=== PATIENT | female | born 1990 | race Caucasian/White ===

== ENCOUNTER → 2022-05-12 | Outpatient (CLI) | payer OTHER ==
--- NOTE | 2022-05-12 16:37 | US ---
EXAMINATION TYPE: Transabdominal DATE OF EXAM: 05/12/2022 4:03 PM COMPARISON: NONE CLINICAL HISTORY: Z34.90 ENCNTR FOR SUPRVSN OF NORM . Positive beta-hCG test. EXAM PERFORMED: Transabdominal (TA) EXAM MEASUREMENTS: GESTATIONAL AGE / DATING Physician Established: (7 weeks/5 days) EDC: 12/24/2022 Dates by LMP: LMP unknown Dates by First Scan: No previous this is first scan Dates by Current Scan for: ( 8 weeks/4 days) EDC: 12/18/2022 MATERNAL ANATOMY Uterus: 10.8 x 5.7 x 6.4cm Right Ovary: 3.8 x 2.8 x 2.4cm Left Ovary: 3.4 x 1.7 x 2.4cm Post CDS / Adnexa: wnl Presence of free fluid: no Presence of corpus luteal cyst: right ovary - 2.3cm Presence of subchorionic bleed: no GESTATION / SURVEY CRL: 1.9cm (8 weeks/4 days) Yolk Sac (normal less than 6mm): 4.3mm Heart Rate: 163 bpm Rhythm: Normal IUP: Viable IUP Single live intrauterine gestation is confirmed as gestational sac, yolk sac, and pole are pres ent. No free fluid in pelvic cul-de-sac. Both ovaries are seen. Right ovary has a 2.3 cm peripheral hypoechoic lesion felt to reflect corpus l uteal cyst. IMPRESSION: Single live intrauterine gestation is confirmed, mean crown-rump length 1.9 cm correspond ing to 8 weeks 4 day old fetus.
== END | disposition home or self-care (01) ==
LOC: RADUSWWP 15:34
PROVIDERS: ATTEND Obstetrics & Gynecology
DX: Z36.89 Encounter for other specified antenatal screening (principal); Z3A.08 8 weeks gestation of pregnancy
CPT/HCPCS: 76801

== ENCOUNTER → 2022-07-19 | Outpatient (CLI) | payer OTHER ==
--- NOTE | 2022-07-20 09:35 | US ---
EXAMINATION TYPE: US OB >= 14 wk fetus DATE OF EXAM: 07/19/2022 COMPARISON: None CLINICAL HISTORY: 31-year-old female Z3490 eNCOUNTER FOR SUPERVISION OF NORMAL Per order, growth ult rasound TECHNIQUE: Multiple transabdominal sonographic images of the pelvis are obtained. FINDINGS: GESTATIONAL AGE / DATING Physician Established: (18 weeks/1 days) EDC: 12/19/2022 Dates by First Scan: (18 weeks/2 days) EDC: 12/18/2022 Dates by Current Scan: (18 weeks/2 days) EDC: 12/18/2022 SURVEY IUP: Single PLACENTA: Posterior PREVIA: No Previa, inferior placental tip 2.4 cm from the internal cervical os. ABIMBOLA: 14.4 cm Normal CERVICAL LENGTH (transabdominal: norm > 3.0cm): 3.8 cm BIOMETRY PRESENTATION: Variable LIE: Transverse with head maternal Right BPD: 4.2 cm 18 weeks / 6 days HC: 14.7 cm 17 weeks / 6 days AC: 12.3 cm 18 weeks / 0 days FL: 2.6 cm 18 weeks / 0 days ESTIMATED WEIGHT IN GRAMS: 217 grams ESTIMATED WEIGHT IN LBS/OZ: 0 lbs. 8 oz. WEIGHT PERCENTAGE BASED ON ESTABLISHED DATES: 33% HC/AC: 1.2 Normal FL/AC: 21% HEART RATE: 146 bpm RHYTHM: Normal [employer] notes: Single live IUP measuring 18 weeks 2 days. IMPRESSION: 1. Single live intrauterine with established gestational age of 18 weeks 1 day (current ult rasound biometry concordant at 18 weeks 2 days) placing the child at the 33rd percentile for weight. 2. Posterior but slightly low lying placenta (inferior tip 2.4 cm from the internal cervical os). 3. Complete survey recommended at 18-20 weeks.
== END | disposition home or self-care (01) ==
LOC: RADUSWWP 15:29
PROVIDERS: ATTEND Obstetrics & Gynecology
DX: O44.42 Low lying placenta NOS or without hemorrhage, second trimester (principal); Z3A.18 18 weeks gestation of pregnancy
CPT/HCPCS: 76805

== ENCOUNTER → 2023-07-11 | Outpatient (CLI) | payer OTHER ==
--- NOTE | 2023-07-12 12:09 | US ---
EXAMINATION TYPE: Ultrasound OB <= 14 week fetus DATE OF EXAM: 07/11/2023 4:39 PM COMPARISON: NONE CLINICAL INDICATION: Female, 32 years old with history of Z34.90 ENCNTR FOR SUPRVSN OF NORMAL PREGNAN CY, UNS; dates EXAM PERFORMED: Transabdominal (TA) EXAM MEASUREMENTS: GESTATIONAL AGE / DATING Physician Established: Not yet established Dates by LMP: (12 weeks/3 days) EDC: 01/20/2024 Dates by First Scan: No previous this is first scan Dates by Current Scan for: (11 weeks/6 days) EDC: 01/24/2024 MATERNAL ANATOMY Uterus: 7.6x3.5x2.2 Right Ovary: 3.2x1.7x1.8 Left Ovary: 2.9x1.6x2.8 Post CDS / Adnexa: wnl Presence of free fluid: N Presence of corpus luteal cyst: N Presence of subchorionic bleed: N GESTATION / SURVEY CRL: (11 weeks/6 days) Yolk Sac (normal less than 6mm): NOT VISUALIZED Heart Rate: 160 bpm Rhythm: Normal IUP: Viable IUP Age Appropriate Anatomy Limbs: Visualized Calvarium: Visualized Date of LMP: 04/15/2023 Beta HcG (if available): Not available at this time IMPRESSION: 1. Single live intrauterine with estimated gestational age of 12 weeks 3 days by LMP. Curr ent ultrasound biometry is concordant at 11 weeks 6 days. 2. Complete survey recommended at 18-20 weeks.
== END | disposition home or self-care (01) ==
LOC: RADUSWWP 16:12
PROVIDERS: ATTEND Obstetrics & Gynecology
DX: Z3A.12 12 weeks gestation of pregnancy (principal); Z34.91 Encounter for supervision of normal pregnancy, unspecified, first trimester
CPT/HCPCS: 76801

== ENCOUNTER → 2023-09-08 | Outpatient (CLI) | payer BC, OTHER ==
--- NOTE | 2023-09-09 13:22 | US ---
EXAMINATION TYPE: US OB anatomy transabd DATE OF EXAM: 09/08/2023 COMPARISON: 07/11/2023 CLINICAL INDICATION: Female, 33 years old with history of Z34.90 ENCNTR FOR SUPRVSN OF NORMAL PREGNAN CY, UNS; Anatomy scan TECHNIQUE: Transabdominal (TA) EXAM MEASUREMENTS: GESTATIONAL AGE / DATING Physician Established: (20 weeks/6 days) EDC: 01/20/2024 Dates by LMP: (20 weeks/6 days) EDC: 01/20/2024 Dates by First Scan: (20 weeks/2 days) EDC: 01/24/2024 Dates by Current Scan for: (19 weeks/6 days) (3 days less growth than expected compared to ) EDC: 01/27/2024 SURVEY IUP: Single PLACENTA: Anterior PREVIA: No previa but low lying with the inferior tip measuring approximately 1.8 cm from the interna l cervical os. ABIMBOLA: 12.8 cm Normal CERVICAL LENGTH (transabdominal: norm > 3.0cm): 3.9 cm BIOMETRY PRESENTATION: Vertex BPD: 4.6 cm 20 weeks / 0 days HC: 17.1 cm 19 weeks / 5 days AC: 14.7 cm 20 weeks / 0 days FL: 3.0 cm 19 weeks / 2 days ESTIMATED WEIGHT IN GRAMS: 306 grams ESTIMATED WEIGHT IN LBS/OZ: 0 lbs. 11 oz. WEIGHT PERCENTAGE BASED ON ESTABLISHED DATE: 5 % HC/AC: 1.16 Normal FL/AC: 20 Normal HEART RATE: 140 bpm RHYTHM: Normal ANATOMY SEEN (within normal limits): Lateral Vent (< 1 cm) 5.6 mm Cisterna Magna (< 1.1 cm) 0.4 cm Nuchal Fold (< 0.6 cm) 0.3 cm Cerebellum (varies with age) 1.8 cm Choroid Plexus (bilateral) Midline Falx Cavus Septi Pellucidi Four Chamber Heart Outflow tract: RVOT Stomach Situs Nose / Lips Diaphragm Kidneys (bilateral) Bladder Three Vessel Cord Longitudinal Spine Transverse Spine Arms (bilateral) Legs (bilateral) ANATOMY NOT WELL SEEN (due to position): Outflow tract: LVOT Cord Insert IMPRESSION: 1. Single live intrauterine with estimated gestational age of 20 weeks 6 days by LMP. Curre nt ultrasound biometry is slightly smaller at 19 weeks 6 days and with 3 days less growth than expect ed compared to 07/11/2023. Consider short interval follow-up given EFW at 5%. 2. A couple structures, survey could not be well visualized due to positioning (LVOT and cord insertion). Rescan can be performed in 1 to 2 weeks if desired. Otherwise, the remaining anatomy appears normal. 3. Anterior, low-lying placenta measuring 1.8 cm from internal cervical os.
== END | disposition home or self-care (01) ==
LOC: RADUSWWP 15:44
PROVIDERS: ATTEND Obstetrics & Gynecology
DX: Z34.90 Encounter for supervision of normal pregnancy, unspecified, unspecified trimester (principal); Z3A.20 20 weeks gestation of pregnancy
CPT/HCPCS: 76811

== ENCOUNTER → 2023-10-05 | Outpatient (CLI) | payer BC, OTHER ==
--- NOTE | 2023-10-06 09:11 | US ---
EXAMINATION TYPE: US OB anatomy transabd DATE OF EXAM: 10/05/2023 COMPARISON: 09/08/23 anatomy CLINICAL INDICATION: Female, 33 years old with history of Z34.90 ENCNTR FOR SUPRVSN OF NORMAL PREGNAN CY, UNS; Patient back for LVOT and cord insertion. Walker patient requiring repeat anatomy scan TECHNIQUE: Transabdominal (TA) EXAM MEASUREMENTS: GESTATIONAL AGE / DATING Physician Established: (24 weeks/5 days) EDC: 01/20/24 Dates by First Scan: (24 weeks/1 days) EDC: 01/24/24 Dates by Current Scan for: (24 weeks/0 days) (2 days more growth than expected from 09/08/2023) EDC: 01/25/24 SURVEY IUP: Single PLACENTA: Anterior PREVIA: No previa (placental margin 4.4 cm from the internal cervical os) ABIMBOLA: 14.0 cm Normal CERVICAL LENGTH (transabdominal: norm > 3.0cm): 3.1 cm BIOMETRY PRESENTATION: Vertex LIE: Transverse lie with head maternal L BPD: 5.83 cm 24 weeks / 0 days HC: 21.83 cm 24 weeks / 0 days AC: 19.22 cm 24 weeks / 0 days FL: 4.16 cm 23 weeks / 4 days ESTIMATED WEIGHT IN GRAMS: 628 grams ESTIMATED WEIGHT IN LBS/OZ: 1 lbs. 6 oz. WEIGHT PERCENTAGE BASED ON ESTABLISHED DATE: 10 % HC/AC: 1.14 Normal FL/AC: 22% Normal HEART RATE: 149 bpm RHYTHM: Normal ANATOMY SEEN (within normal limits): Lateral Vent (< 1 cm) 0.54 cm Cisterna Magna (< 1.1 cm) 0.53 cm Nuchal Fold (< 0.6 cm) 0.25 cm Cerebellum (varies with age) 2.5 cm Choroid Plexus (bilateral) Midline Falx Cavus Septi Pellucidi Outflow tracts: LVOT/RVOT Stomach Situs Diaphragm Kidneys (bilateral) Bladder Three Vessel Cord Arms (bilateral) Legs (bilateral) LVOT seen on today's exam ANATOMY NOT SEEN OR SUBOPTIMALLY VISUALIZED (due to positioning): Spine 4ch heart Cord Insert (excessive crowding of adjacent structures at the cord insertion) Nose / Lips IMPRESSION: 1. Single live intrauterine with established gestational age of 24 weeks 5 days. Current ul trasound biometry is concordant at 24 weeks 0 days with 2 days more growth than expected compared to prior exam. This places the child at the 10th percentile for weight (versus 5%, previously). 2. The LVOT is visualized and appears normal. Suboptimal imaging of the cord insertion due to excessi ve crowding of adjacent structures.
== END | disposition home or self-care (01) ==
LOC: RADUSWWP 10:11
PROVIDERS: ATTEND Obstetrics & Gynecology
DX: Z34.92 Encounter for supervision of normal pregnancy, unspecified, second trimester (principal); Z3A.25 25 weeks gestation of pregnancy
CPT/HCPCS: 76811